=== PATIENT | female | born 1985 | race Caucasian/White ===

== ENCOUNTER 2018-01-23 15:17 | Emergency (ER) | payer SELFPAY ==
[2018-01-23] MEDS ORDERED: KETOROLAC TROMETHAMINE 60 MG/2 ML SDV IM ONE (18:12)
--- NOTE | 2018-01-23 18:18 | ER Document Report ---
ED Wound - General Chief Complaint: Wound Infection Stated Complaint: LEFT ANKLE INJURY Time Seen by Provider: 01/23/18 18:07 Notes: Patient presents with chief complaint of wound infection to her left ankle. Patient reports that she cut her foot on a metal door of a mobile home, reports it was healing well but now appears infected. Patient denies any fevers. TRAVEL OUTSIDE OF THE [place] IN LAST 30 DAYS: No - Related Data Allergies/Adverse Reactions: No Known Allergies Allergy (Unverified 04/13/17 13:27) Past Medical History - General Information source: Patient - Social History Smoking Status: Current Some Day Smoker Frequency of alcohol use: None Drug Abuse: None Family History: Reviewed & Not Pertinent - Past Medical History Cardiac Medical History: Reports: Hx Hypertension Renal/ Medical History: Denies: Hx Peritoneal Dialysis Past Surgical History: Reports: Hx Orthopedic Surgery - Right index finger 6 years ago. never told what the specimen was., Hx Tubal Ligation - Immunizations Hx Diphtheria, Pertussis, Tetanus Vaccination: No Review of Systems - Review of Systems Constitutional: No symptoms reported EENT: No symptoms reported Cardiovascular: No symptoms reported Respiratory: No symptoms reported Gastrointestinal: No symptoms reported Genitourinary: No symptoms reported Female Genitourinary: No symptoms reported Musculoskeletal: No symptoms reported Skin: See HPI Hematologic/Lymphatic: No symptoms reported Neurological/Psychological: No symptoms reported Physical Exam - Vital signs Vitals: Temp Pulse Resp BP Pulse Ox 98.8 F 106 H 18 155/106 H 97 01/23/18 15:58 01/23/18 15:58 01/23/18 15:58 01/23/18 15:58 01/23/18 15:58 - Notes Notes: PHYSICAL EXAMINATION: GENERAL: Well-appearing, well-nourished and in no acute distress. HEAD: Atraumatic, normocephalic. EYES: Pupils equal round and reactive to light, extraocular movements intact, conjunctiva are normal. ENT: Nares patent, oropharynx clear without exudates. Moist mucous membranes. NECK: Normal range of motion, supple without lymphadenopathy LUNGS: Breath sounds clear to auscultation bilaterally and equal. No wheezes rales or rhonchi. HEART: Regular rate and rhythm without murmurs ABDOMEN: Soft, nontender, nondistended abdomen. No guarding, no rebound. No masses appreciated. Female : deferred Musculoskeletal: Normal range of motion, no pitting or edema. No cyanosis. NEUROLOGICAL: Cranial nerves grossly intact. Normal speech, normal gait. Normal sensory, motor exams PSYCH: Normal mood, normal affect. SKIN: Erythema and swelling noted to right ankle near site of old laceration. Scattered petechial rash noted to bilateral shins. Course - Re-evaluation Re-evalutation: Otherwise healthy 32-year-old white female presenting with chief complaint of wound infection. Patient does have a cellulitis to left ankle but patient also has a scattered petechial appearing rash to her bilateral shins and nowhere else. X-rays negative for any acute fracture or dislocation, no evidence of osteo-myelitis is gas. Laboratory workup was ordered on this patient due to petechial rash across her bilateral shins after consulting with physician. Laboratory workup is unremarkable other than elevated AST and ALT. Patient will be placed on antibiotics, patient does not have a primary care provider so patient is instructed to return to this emergency department in 24-48 hours for a recheck of her cellulitis. - Vital Signs Vital signs: Temp Pulse Resp BP Pulse Ox 98.3 F 87 13 149/94 H 100 01/23/18 19:21 01/23/18 19:21 01/23/18 19:21 01/23/18 19:21 01/23/18 19:21 - Laboratory Result Diagrams: 01/23/18 19:45 01/23/18 19:45 Laboratory results interpreted by me: 01/23/18 01/23/18 19:45 19:45 WBC 3.6 L MCV 99 H MCH 34.1 H AST 169 H ALT 168 H Discharge - Discharge Clinical Impression: Foot pain, Petechial rash, Cellulitis Condition: Stable Disposition: HOME, SELF-CARE Additional Instructions: Cellulitis You have an infection of your skin and underlying soft tissues called cellulitis. This is due to bacteria, which can enter through any break in the skin, or even through an irritated hair follicle. Untreated, cellulitis will usually worsen. Antibiotics are required. Usually, warm packs or warm soaks, and elevation of the infected area are recommended. You should start getting better within 24 to 36 hours. Most infections respond quickly to the right medication. Follow-up care is important, however, to check for abscess (boil) formation, unsuspected foreign body, or resistant infection. If you develop fever, chills, or if the area of infection is becoming rapidly more swollen or painful, call the doctor at once. It is very important that you follow-up in the next 24-48 hours. Since she do not have a primary care established, please return to the emergency department for reevaluation. Your labs today were normal other than mildly elevated liver function tests. Please return to the emergency department sooner if you develop a fever, worsening pain or any other symptom that is concerning to you. Prescriptions: Cephalexin Monohydrate [Keflex 500 mg Capsule] 500 mg PO Q6H 5 Days #20 capsule Forms: Return to Work
--- NOTE | 2018-01-23 18:38 | RADIOLOGY REPORT (SQ) ---
EXAM DESCRIPTION: FOOT LEFT COMPLETE COMPLETED DATE/TIME: 01/23/2018 6:30 pm REASON FOR STUDY: pain, erythema, swelling COMPARISON: None. NUMBER OF VIEWS: Three views. TECHNIQUE: AP, lateral and oblique radiographic images acquired of the left foot. LIMITATIONS: None. FINDINGS: MINERALIZATION: Normal. BONES: No acute fracture or dislocation. No worrisome bone lesions. JOINTS: No effusions. SOFT TISSUES: No soft tissue swelling. No foreign body. OTHER: No other significant finding. IMPRESSION: NEGATIVE STUDY OF THE LEFT FOOT. NO RADIOGRAPHIC EVIDENCE OF ACUTE INJURY. TECHNICAL DOCUMENTATION: JOB ID: [id number] [employer]- All Rights Reserved Reading location - IP/workstation name: [email or web address]
[2018-01-23 19:22] VITALS: BP 149/94
[2018-01-23 19:57] LABS: ABSOLUTE EOSINOPHILS # (AUTO) 0.1 10^3/uL (0.0-0.6); ABSOLUTE LYMPHOCYTES (AUTO) 0.7 10^3/uL (0.5-4.7); ABSOLUTE MONOCYTES (AUTO) 0.3 10^3/uL (0.1-1.4); ABSOLUTE NEUT (AUTO) 2.4 10^3/uL (1.7-8.2); EOSINOPHILS % (AUTO) 2.5 % (0-6); HEMATOCRIT 43.6 % (36.0-47.0); HEMOGLOBIN 15.1 g/dL (12.0-15.5); LYMPHOCYTES % (AUTO) 18.8 % (13-45); MEAN CORPUSCULAR HEMOGLOBIN 34.1 pg (27.0-33.4); MEAN CORPUSCULAR HGB CONC 34.6 g/dL (32.0-36.0); MEAN CORPUSCULAR VOLUME 99 fl (80-97); MONOCYTES % (AUTO) 9.6 % (3-13); PLATELET COUNT 221 10^3/uL (150-450); RED BLOOD COUNT 4.42 10^6/uL (3.72-5.28); RED CELL DISTRIBUTION WIDTH 13.8 % (11.5-14.0); SEGMENTED NEUTROPHILS % (AUTO) 68.1 % (42-78); TOTAL CELLS COUNTED % (AUTO) 100 %; WHITE BLOOD COUNT 3.6 10^3/uL (4.0-10.5)
[2018-01-23 20:04] LABS: INTERNATIONAL RATION (INR) 0.96; PROTHROMBIN TIME 13.3 SEC (11.4-15.4)
[2018-01-23 20:05] LABS: PARTIAL THROMBOPLASTIN TIME 31.9 SEC (23.5-35.8)
[2018-01-23 20:18] LABS: ALANINE AMINOTRANSFERASE 168 U/L (9-52); ALBUMIN 3.8 g/dL (3.5-5.0); ALKALINE PHOSPHATASE 71 U/L (38-126); ANION GAP 11 (5-19); ASPARTATE AMINO TRANSFERASE 169 U/L (14-36); BILIRUBIN,DIRECT 0.3 mg/dL (0.0-0.4); BILIRUBIN,TOTAL 0.5 mg/dL (0.2-1.3); BLOOD UREA NITROGEN 9 mg/dL (7-20); CARBON DIOXIDE 23 mmol/L (22-30); CHLORIDE 105 mmol/L (98-107); GLUCOSE 81 mg/dL (75-110); POTASSIUM 4.3 mmol/L (3.6-5.0); TOTAL PROTEIN 6.9 g/dL (6.3-8.2)
[2018-01-23] MEDS ORDERED: CEPHALEXIN 500 MG CAPSULE PO ONE (21:47)
[2018-01-23] MEDS ORDERED: HYDROCODONE/ACETAMINOPHEN 5-325 MG (6 TAB/ER DISP) PO PRN (21:49)
== END 2018-01-23 22:03 | disposition home or self-care (01) ==
LOC: ER 15:17
DX: L03.116 Cellulitis of left lower limb (principal); R23.3 Spontaneous ecchymoses; S91.319D Laceration without foreign body, unspecified foot, subsequent encounter; W45.8XXD Other foreign body or object entering through skin, subsequent encounter; M79.673 Pain in unspecified foot; F17.200 Nicotine dependence, unspecified, uncomplicated; I10 Essential (primary) hypertension
CPT/HCPCS: 99283; 96372; 36415; 85025; 85610; 85730; 80053; 73630; J1885